=== PATIENT | male | born 1980 | race Caucasian/White ===

== ENCOUNTER 2023-07-27 22:28 | Emergency (ER) | payer OTHER, SELFPAY ==
[2023-07-27 22:36] VITALS: BP 108/76; PULSE 80; RESP 18; TEMP 36.7; O2SAT 98; BMI 28.2
--- NOTE | 2023-07-27 22:45 | XR_ITS ---
[address] [address] Patient Name: NIGEL MONTGOMERY MRN: [id number] date: 1980 Sex: M Assigned Patient Location: ER Current Patient Location: ER Accession/Order Number: [id number] Exam Date: 07/27/2023 22:48 Report Date: 07/27/2023 23:16 At the request of: MABEL LOPES Procedure: XR knee RT 3V EXAM: XR knee RT 3V HISTORY: Lateral knee pain COMPARISON: None. TECHNIQUE: 3 views FINDINGS: No osseous lesion, fracture, dislocation or subluxation. Joint spaces are normal. No visualized effusion. No visualized soft tissue edema. XR/XR knee RT 3V IMPRESSION: Normal x-rays Electronically authenticated by: GERARDO FUENTES Date: 07/27/2023 23:16
--- NOTE | 2023-07-27 22:46 | ED_ITS ---
HPI - Extremity Injury (Lower) General Chief Complaint: Extremity Injury, Lower Stated Complaint: RIGHT KNEE INJURY/BWC Time Seen by Provider: 07/27/23 22:43 Source: patient Mode of arrival: walk-in Limitations: no limitations History of Present Illness HPI Narrative: injured right knee at work. 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 In doing so repeatedly he felt a pop in the right knee and now has pain. Denies other injury . Injury within the last hour MD complaint: Reports knee injury Related Data Home Medications Medication Instructions Recorded Confirmed No Known Home Medications 07/27/23 07/27/23 Allergies Allergy/AdvReac Type Severity Reaction Status Date / Time aspirin Allergy Unknown Verified 07/27/23 22:40 Latex, Natural Rubber Allergy Unknown Verified 07/27/23 22:40 Review of Systems ROS Status of ROS 10 or more systems reviewed and unremarkable except as noted in history and below [facility] Social History Smoking status: Current every day smoker Exam Constitutional Vital Signs, click to edit/add: Last Vital Signs Temp 98.0 F 07/27/23 22:36 Pulse 80 07/27/23 22:36 Resp 18 07/27/23 22:36 BP 108/76 07/27/23 22:36 Pulse Ox 98 07/27/23 22:36 O2 Del Method Room Air 07/27/23 22:36 Common normals: no apparent distress, average body habitus, oriented x3, no limitations and healthy appearing Eye Common normals: EOMs intact bilaterally and conjunctivae normal Respiratory Common normals: normal respiratory effort, no retractions and no use of accessory muscles GI Common normals: Normal to inspection, nondistended, normoactive bowel sounds present Extremity Common normals: normal to inspection Other: mild tenderness right knee about patella Neuro Common normals: oriented x3, CN's II-XII intact bilaterally, moves all extremities, no focal motor deficits and no sensory deficits noted Psych Appearance: grossly normal Course Vital Signs Vital signs: Vital Signs Temperature 98.0 F 07/27/23 22:36 Pulse Rate 80 07/27/23 22:36 Respiratory Rate 18 07/27/23 22:36 Blood Pressure 108/76 07/27/23 22:36 Pulse Oximetry 98 07/27/23 22:36 Oxygen Delivery Method Room Air 07/27/23 22:36 Temperature 98.0 F 07/27/23 22:36 Pulse Rate 80 07/27/23 22:36 Respiratory Rate 18 07/27/23 22:36 Blood Pressure 108/76 07/27/23 22:36 Pulse Oximetry 98 07/27/23 22:36 Oxygen Delivery Method Room Air 07/27/23 22:36 MDM - Extremity Injury (Lower) MDM Narrative Medical decision making narrative: patient strained right knee at work. xray neg. No swelling or deformity of the knee. Will have him return to work with restrictions for a couple of days and plan to return without restrictions 07/29/23. He is also advised [facility] Discharge Plan Discharge Chief Complaint: Extremity Injury, Lower Clinical Impression: Strain of right knee Prescriptions / Home Meds: No Action No Known Home Medications Instructions: Knee Pain (ED) Additional Instructions: [facility] with [facility] saturday Referrals: Physician,Non-Staff, [Primary Care Provider] - 1 week
--- NOTE | 2023-07-27 22:55 | PC.NURSE ---
C/O right knee pain. No trauma noted. Good pedal pulse full sensation.
--- NOTE | 2023-07-27 23:42 | PC.NURSE ---
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
[2023-07-28 00:12] VITALS: BP 112/70; PULSE 66; RESP 16; O2SAT 100
== END 2023-07-28 00:16 | disposition home or self-care (01) ==
PROVIDERS: Emergency Provider Internal Medicine
DX: S86.811A Strain of other muscle(s) and tendon(s) at lower leg level, right leg, initial encounter (principal); X50.9XXA Other and unspecified overexertion or strenuous movements or postures, initial encounter
CPT/HCPCS: 73562; 99283